=== PATIENT | male | born 1940 ===

== ENCOUNTER 2017-01-31 17:35 | Emergency (ER) | payer OTHER, MEDICARE ==
[2017-01-31 17:35] VITALS: BMI 27.9
[2017-01-31 17:42] VITALS: O2SAT 99
[2017-01-31 19:26] VITALS: BP 151/83; PULSE 55; RESP 18; TEMP 97.6
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
--- NOTE | 2017-02-01 08:51 | RAD ---
PROCEDURE: Cervical Spine Radiographs. HISTORY: Pain. COMPARISON: None. FINDINGS: BONES: Alignment maintained. No fracture. Dens Intact. Diffuse cervical spondylosis DISC SPACES: Disc space narrowing C5-6 most notably SOFT TISSUES: Normal. No prevertebral soft tissue swelling. OTHER FINDINGS: None. IMPRESSION: No fracture or subluxation. Degenerative changes.
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
== END 2017-01-31 21:34 | disposition home or self-care (01) ==
LOC: C.ER 17:35
DX: S16.1XXA Strain of muscle, fascia and tendon at neck level, initial encounter (principal); S39.012A Strain of muscle, fascia and tendon of lower back, initial encounter; S80.02XA Contusion of left knee, initial encounter; V89.2XXA Person injured in unspecified motor-vehicle accident, traffic, initial encounter